=== PATIENT | female | born 1970 | race African-American/Black ===

== ENCOUNTER 2024-07-10 23:18 | Emergency (ER) | payer MEDICAID, OTHER ==
[~2024-07-10] VITALS: Ht 157.5 cm; Wt 92.4 kg
[2024-07-10 23:25] VITALS: TEMP 36.6; O2SAT 100; O2SAT 99
[2024-07-11 00:51] VITALS: BP 131/77; PULSE 102; RESP 18
[2024-07-11] MEDS: IBUPROFEN 100MG/5ML UDC PO ONE (00:51)
[2024-07-11] MEDS ORDERED: DOXY100C5 MT (21:30)
== END 2024-07-11 02:18 | disposition home or self-care (01) ==
LOC: ER 23:18
DX: J18.9 Pneumonia, unspecified organism (principal); Z87.01 Personal history of pneumonia (recurrent); Z98.890 Other specified postprocedural states
CPT/HCPCS: 71045; 99283